=== PATIENT | female | born 1970 | race Caucasian/White ===

== ENCOUNTER 2020-01-08 15:41 | Inpatient (IN) | payer OTHER ==
[~2020-01-08] VITALS: Ht 152.4 cm; Wt 78.0 kg
[2020-01-08] MEDS ORDERED: METF-886 PO (15:49)
[2020-01-08] MEDS ORDERED: LISI10TA5 PO (15:49)
[2020-01-08] MEDS ORDERED: ASPI81TA31 PO (15:49)
--- NOTE | 2020-01-08 16:02 | NUR ---
[email or web address], medical screening exam in progress
[2020-01-08] MEDS ORDERED: LORAZEPAM 1 MG TABLET ONE (16:12)
[2020-01-08] MEDS ORDERED: LORAZEPAM 0.5 MG TABLET PO ONE (16:15)
[2020-01-08] MEDS ORDERED: IV NORMAL SALINE 500 ML BAG IV ONE (16:15)
[2020-01-08 16:16] LABS: BASOPHILS # (AUTO) 0.1 K/uL (0.0-8.0); EOSINOPHILS # (AUTO) 0.1 K/uL (0.0-0.7); EOSINOPHILS % (AUTO) 1.4 % (0.0-7.0); HEMATOCRIT 41.3 % (31.2-41.9); HEMOGLOBIN 13.7 g/dL (10.9-14.3); LYMPHOCYTES # (AUTO) 1.9 K/uL (20.0-40.0); LYMPHOCYTES % (AUTO) 18.7 % (20.5-51.5); MEAN CORPUSCULAR HEMOGLOBIN 28.1 uug (24.7-32.8); MEAN CORPUSCULAR HGB CONC 33 g/dL (32.3-35.6); MEAN CORPUSCULAR VOLUME 84.6 fL (75.5-95.3); MONOCYTES # (AUTO) 0.6 K/uL (2.0-10.0); MONOCYTES % (AUTO) 5.5 % (0.0-11.0); NEUTROPHILS # (AUTO) 7.6 K/uL (1.8-8.9); NEUTROPHILS % (AUTO) 73.4 % (38.5-71.5); PLATELET COUNT (AUTO) 467 K/uL (179-408); RED BLOOD CELL COUNT(AUTO) 4.88 MIL/uL (3.63-4.92); WHITE BLOOD COUNT (AUTO) 10.4 K/uL (3.8-11.8)
[2020-01-08 16:29] LABS: CARBON DIOXIDE 23 mmol/L (21-32); CHLORIDE 98 mmol/L (98-107); CREATININE 0.8 mg/dL (0.6-1.3); GLUCOSE 264 mg/dL (74-106); POTASSIUM 4.2 mmol/L (3.5-5.1); UREA NITROGEN, BLOOD 10 mg/dL (7-18)
[2020-01-08 16:35] LABS: ALANINE AMINOTRANSFERASE 87 U/L (14-59); ALKALINE PHOSPHATASE 107 U/L (50-136); ASPARTATE AMINOTRANSFERASE 53 U/L (15-37); BILIRUBIN,DIRECT < 0.1 mg/dL (0.0-0.2); BILIRUBIN,TOTAL 0.2 mg/dL (0.2-1.0); TOTAL PROTEIN, SERUM 7.9 g/dL (6.4-8.2)
[2020-01-08 16:42] LABS: THYROID STIMULATING HORMONE 1.908 mIU/mL (0.358-3.740)
--- NOTE | 2020-01-08 17:00 | NUR ---
Patient says that she feels better but still c/o left arm tingling, numbness & discomfort, MD notified.
--- NOTE | 2020-01-08 17:27 | NUR ---
Patient is now talking to her spouse via phone re: recommendation. Patient is still not sure whether she wants to stay in the hospital or go home.
[2020-01-08] MEDS ORDERED: IBUPROFEN 600 MG TABLET PO ONE (17:30)
[2020-01-08] MEDS ORDERED: IBUPROFEN 600 MG TABLET ONE (17:35)
--- NOTE | 2020-01-08 17:45 | NUR ---
Patient will have repeat troponin in about 2 hours. Repeat EKG was done. Comfort and safety measures maintained.
--- NOTE | 2020-01-08 17:51 | NUR ---
Patient's spouse is now here inside ER room 4A, talking to patient and MD.
[2020-01-08] MEDS ORDERED: ASPIRIN 325 MG TABLET PO ONE (19:00)
[2020-01-08] MEDS ORDERED: ASPIRIN 325 MG TABLET ONE (19:01)
--- NOTE | 2020-01-08 19:01 | NUR ---
Patient ate hot dinner tray with good appetite, still waiting for an accepting telemetry nurse, ednorslarry to shoe salesman Jian & 7pm shift nurse Roe
--- NOTE | 2020-01-08 19:14 | NUR ---
Report received from outgoing RN. Patient is in bed, no signs of acute distress. Went to the bathroom to urinate, able to void with no issues. Ambulated form and back to bed with no issues.
--- NOTE | 2020-01-08 19:16 | NUR ---
COVID Fast Antigen done.
--- NOTE | 2020-01-08 20:03 | NUR ---
Called third floor, provided with Room 307. Awaiting for Carole CA to call me back for report.
--- NOTE | 2020-01-08 20:15 | NUR ---
Report given to Carole CA.
[2020-01-08 20:51] VITALS: BP 135/83
[2020-01-08] MEDS ORDERED: LORAZEPAM 2 MG/1 ML VIAL IV PRN (22:00)
[2020-01-08] MEDS ORDERED: HYDROCODONE/APAP 5-325MG TABLET PO PRN (22:00)
[2020-01-08] MEDS ORDERED: hydrALAZINE HCL 25 MG TABLET PO PRN (22:00)
[2020-01-08] MEDS ORDERED: ONDANSETRON 4 MG/2 ML VIAL IV PRN (22:00)
[2020-01-08] MEDS: ACETAMINOPHEN 325 MG TABLET PO PRN (22:42)
[2020-01-08] MEDS: TEMAZEPAM 15 MG CAPSULE PO PRN (22:42)
[2020-01-09 00:26] VITALS: BP 108/57
--- NOTE | 2020-01-09 05:06 | NUR ---
PATIENT AAOX3. V/S STABLE AND NO SIGNS OF ACUTE DISTRESS NOTED THROUGHOUT SHIFT. SAT AT 98% RA. RAC PIV INTACT AND PATENT. NO C/O OF CHEST PAIN. NSR ON TELE MONITOR. C/O OF HEADACHE, ANXIETY, PALPITATION AND INSOMNIA. NEEDS ATTENDED TO AND MEDICATIONS ADMINISTERED. SAFETY MEASURES IN PLACE AND CALL LIGHT WITHIN REACH. NEEDS ATTENDED TO. MEDICATIONS ADMINISTERED WITHOUT ASE. WILL CONTINUE TO MONITOR AND ASSESS.
[2020-01-09 05:22] VITALS: BP 105/70
[2020-01-09 05:58] LABS: BASOPHILS # (AUTO) 0.1 K/uL (0.0-8.0); BASOPHILS % (AUTO) 1.1 % (0.0-2.0); EOSINOPHILS # (AUTO) 0.2 K/uL (0.0-0.7); EOSINOPHILS % (AUTO) 2.1 % (0.0-7.0); HEMATOCRIT 36.7 % (31.2-41.9); HEMOGLOBIN 12.2 g/dL (10.9-14.3); LYMPHOCYTES # (AUTO) 3.1 K/uL (20.0-40.0); LYMPHOCYTES % (AUTO) 32.3 % (20.5-51.5); MEAN CORPUSCULAR HEMOGLOBIN 28.2 uug (24.7-32.8); MEAN CORPUSCULAR HGB CONC 33 g/dL (32.3-35.6); MEAN CORPUSCULAR VOLUME 85.1 fL (75.5-95.3); MONOCYTES # (AUTO) 0.5 K/uL (2.0-10.0); MONOCYTES % (AUTO) 5.8 % (0.0-11.0); NEUTROPHILS # (AUTO) 5.5 K/uL (1.8-8.9); NEUTROPHILS % (AUTO) 58.7 % (38.5-71.5); PLATELET COUNT (AUTO) 411 K/uL (179-408); RED BLOOD CELL COUNT(AUTO) 4.31 MIL/uL (3.63-4.92); WHITE BLOOD COUNT (AUTO) 9.4 K/uL (3.8-11.8)
[2020-01-09] MEDS: PANTOPRAZOLE SODIUM 40 MG TABLET.DR PO SCH (06:08)
[2020-01-09 06:15] LABS: BILIRUBIN,TOTAL 0.2 mg/dL (0.2-1.0); CREATININE 0.7 mg/dL (0.6-1.3); MAGNESIUM 1.9 mg/dL (1.8-2.4); PHOSPHOROUS 3.2 mg/dL (2.5-4.9); POTASSIUM 3.9 mmol/L (3.5-5.1)
[2020-01-09 06:19] LABS: THYROID STIMULATING HORMONE 2.873 mIU/mL (0.358-3.740)
--- NOTE | 2020-01-09 07:12 | NUR ---
received in bed sleeping call light with in reach vs are stable
[2020-01-09] MEDS: LISINOPRIL 10 MG TABLET PO SCH (08:03)
[2020-01-09] MEDS: ASPIRIN 81 MG TAB.CHEW PO SCH (08:03)
[2020-01-09] MEDS ORDERED: METFORMIN XR 500 MG TAB.SR.24H PO SCH ×2 (09:00→18:00)
[2020-01-09 12:00] VITALS: BP 126/82
[2020-01-09] MEDS ORDERED: DEXTROSE 50% 50 ML DISP.SYRIN IV PRN (12:00)
[2020-01-09] MEDS: BLOOD SUGAR DIAGNOSTIC 1 EACH STRIP VI SCH ×3 (12:04→20:15)
[2020-01-09] MEDS: glipiZIDE 5 MG TABLET PO SCH ×2 (12:08→15:49)
[2020-01-09] MEDS: INSULIN REGULAR, HUMAN 300 UNIT/3 ML VIAL SQ PRN ×3 (12:09→21:03)
[2020-01-09] MEDS: ACETAMINOPHEN 325 MG TABLET PO PRN ×2 (15:57→21:57)
[2020-01-09 16:00] VITALS: BP 127/80
--- NOTE | 2020-01-09 20:00 | NUR ---
Received patient awake and alert. Patient shows no signs or symptoms of distress at this time. Vital signs stable NSR on tele monitor. Denies having any chest pain or palpitations at this time. Bed set to lowest position. Call light within reach. Side rails X2 are up. Will continue to monitor patient.
[2020-01-09 20:07] VITALS: BP 112/72
[2020-01-09] MEDS ORDERED: ATORVASTATIN 40 MG TABLET PO SCH (21:00)
[2020-01-09] MEDS ORDERED: DOCUSATE SODIUM 100 MG CAPSULE PO SCH (21:00)
[2020-01-09] MEDS ORDERED: EZETIMIBE 10 MG TABLET PO SCH (21:00)
[2020-01-09] MEDS: TEMAZEPAM 15 MG CAPSULE PO PRN (21:04)
[2020-01-10] VITALS: BP 115/68
[2020-01-10 04:00] VITALS: BP 115/68
[2020-01-10 06:15] LABS: BASOPHILS # (AUTO) 0.1 K/uL (0.0-8.0); BASOPHILS % (AUTO) 1.2 % (0.0-2.0); EOSINOPHILS # (AUTO) 0.4 K/uL (0.0-0.7); EOSINOPHILS % (AUTO) 3.5 % (0.0-7.0); HEMATOCRIT 39.7 % (31.2-41.9); HEMOGLOBIN 13.2 g/dL (10.9-14.3); LYMPHOCYTES # (AUTO) 3.1 K/uL (20.0-40.0); LYMPHOCYTES % (AUTO) 29.2 % (20.5-51.5); MEAN CORPUSCULAR HEMOGLOBIN 28.2 uug (24.7-32.8); MEAN CORPUSCULAR HGB CONC 33 g/dL (32.3-35.6); MEAN CORPUSCULAR VOLUME 84.8 fL (75.5-95.3); MONOCYTES # (AUTO) 0.5 K/uL (2.0-10.0); MONOCYTES % (AUTO) 4.7 % (0.0-11.0); NEUTROPHILS # (AUTO) 6.4 K/uL (1.8-8.9); NEUTROPHILS % (AUTO) 61.4 % (38.5-71.5); PLATELET COUNT (AUTO) 420 K/uL (179-408); RED BLOOD CELL COUNT(AUTO) 4.68 MIL/uL (3.63-4.92); WHITE BLOOD COUNT (AUTO) 10.5 K/uL (3.8-11.8)
[2020-01-10] MEDS: PANTOPRAZOLE SODIUM 40 MG TABLET.DR PO SCH (06:17)
[2020-01-10 06:28] LABS: CREATININE 0.6 mg/dL (0.6-1.3); MAGNESIUM 1.8 mg/dL (1.8-2.4); PHOSPHOROUS 4.8 mg/dL (2.5-4.9); POTASSIUM 3.9 mmol/L (3.5-5.1)
--- NOTE | 2020-01-10 06:40 | NUR ---
Patient shows no signs or symptoms of distress at this time. Vital signs stable. Denies having any chest pain at this time. NSR on tele monitor. Will endorse patient to day shift nurse in stable condition.
[2020-01-10] MEDS: BLOOD SUGAR DIAGNOSTIC 1 EACH STRIP VI SCH ×2 (06:47→11:13)
[2020-01-10] MEDS: INSULIN REGULAR, HUMAN 300 UNIT/3 ML VIAL SQ PRN ×2 (07:29→11:15)
[2020-01-10] MEDS: glipiZIDE 5 MG TABLET PO SCH (07:40)
[2020-01-10] MEDS: ASPIRIN 81 MG TAB.CHEW PO SCH (08:09)
[2020-01-10] MEDS: LISINOPRIL 10 MG TABLET PO SCH (08:09)
[2020-01-10 12:00] VITALS: BP 123/77
[2020-01-10] MEDS ORDERED: EZET10TA15 PO (13:33)
[2020-01-10] MEDS ORDERED: GLIP10TA11 PO (13:33)
[2020-01-10] MEDS ORDERED: METF500T3 PO (13:33)
[2020-01-10] MEDS ORDERED: ATOR40TA PO (13:33)
[2020-01-10] MEDS ORDERED: PANT40TA2 PO (13:34)
[2020-01-10] MEDS ORDERED: ALPR0.5T8 PO (15:03)
--- NOTE | 2020-01-10 16:05 | NUR ---
dc orders received noted and carried out,dc heplock per md orders,dc instruction and education given to the pt,pt said she will follow up with the pcp in one week.pt left the facility via private car in stable condition
== END 2020-01-10 16:01 | disposition home or self-care (01) | DRG 392 ==
LOC: ER 15:44 → MEDSURG3 20:28 → TELE3 22:30 → MEDSURG3 01-10 09:20
PROVIDERS: ADMIT Internal Medicine; ATTEND Internal Medicine
DX: K21.9 Gastro-esophageal reflux disease without esophagitis (principal); E11.65 Type 2 diabetes mellitus with hyperglycemia; E78.5 Hyperlipidemia, unspecified; E66.9 Obesity, unspecified; Z68.33 Body mass index [BMI] 33.0-33.9, adult; F41.9 Anxiety disorder, unspecified; R00.2 Palpitations; I10 Essential (primary) hypertension; I25.10 Atherosclerotic heart disease of native coronary artery without angina pectoris; R74.0 Nonspecific elevation of levels of transaminase and lactic acid dehydrogenase [LDH]; I25.2 Old myocardial infarction
CPT/HCPCS: 36415; 70030-TC; 70450; 71045; 83735; 84100; 84443; 85025; 93005; A4663; G0378; J1815; J2060; J7030